=== PATIENT | female | born 1965 | race Caucasian/White ===

== ENCOUNTER 2025-06-13 08:56 | Outpatient (AMB) | payer BC, SELFPAY ==
--- NOTE | 2025-06-13 09:00 | HO.SPINEOV ---
Vital Signs 06/13/25 09:03 Height 5 ft 10 in Weight 225 lb BMI 32.3 Intake Visit Reasons: cervicalgia Intake Note: Ms. Woodruff is here today c/o neck pain and numbness on the left side. 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 HPI: This 59-year-old female fell 6 ft at work in 2011. This is not a worker's comp case. She suffered a concussion and has been complaining of left-sided neck pain. She has tried all forms of conservative therapy, including physical therapy, acupuncture, local creams and a epidural steroid injection. No improvement occurred. The most beneficial was acupuncture which caused her 100 dollars per treatment and is not reimbursed. In November of this year the pain aggravated and now involves tingling in mostly the 2nd and 3rd finger on the left. The pain stays on the left side of her neck and goes to her shoulder blade but not into the arm. The pain wakes her up at night. 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 PMH: Diabetes with an A1c of 5.2 after starting Mounjaro. , appendectomy and hysterectomy Medications: Mounjaro, gabapentin, ibuprofen/Tylenol, muscle relaxant p.r.n. Allergies: Rapliva Social history: Employed, nonsmoker. Physical Exam: Pleasant female. Spurling produces pain down the left side of her neck and increases the tingling in the 2nd and 3rd fingers. Motor and sensory exam are intact. Reflexes are symmetrically intact. No pathological reflexes. Gait is undisturbed. Tinel signs are negative Radiological Studies: MRI done at [facility] on 05/02/2025 shows degenerative disc disease C5-6 and C6-7 with severe bilateral C6 foraminal stenosis and moderate left C7 foraminal stenosis Impression/Plan: This patient is suffering from left-sided neck pain with a component of cervical radiculopathy most likely related to the C5-6 and C6-7 degenerative disc disease. She has tried all forms of conservative treatments and I have no input on any other form of nonsurgical treatments. She could consider an anterior diskectomy and fusion C5-6 and C6-7 depending on the severity of her symptoms. We briefly discussed the surgical approach with possible complications and expected postoperative course. I will leave it up to the patient if she wants to proceed with this. For now, I think she will opt to continue her current regiment. Thank you for allowing me to participate in your patients care. total time spent was 50 minutes in counseling ,coordination of plan, personal review of imaging, surgical decision making and subsequent plan Ancelmo Rhodes MD, PhD Spine Fellowship Trained Neurosurgeon Director, [facility] Coding Level of Care Code New Pt Level 4 (52042) Diagnoses Cervical radiculopathy due to degenerative joint disease of spine M47.22
[2025-06-13 09:03] VITALS: BMI 32.3
--- OUTSIDE RECORDS SUMMARY | 2025-06-13 09:50 | XMS_ITS | Clinical Summary ---
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 0 04/23/2021 Active amoxicillin (AMOXIL) 500 MG capsule TAKE 1 CAPSULE BY MOUTH EVERY 8 HOURS UNTIL GONE 0 01/20/2022 Active clotrimazole-betamet hasone (LOTRISONE) cream APPLY THIN LAYER TOPICALLY TO THE AFFECTED AREA TWICE DAILY FOR 2 WEEKS 0 01/26/2022 Active ibuprofen 800 MG tablet Take 800 mg by mouth every 8 (eight) hours as needed. with food 0 01/20/2022 Active miconazole (MICATIN) 2 % cream APPLY TOPICALLY TO THE AFFECTED AREA TWICE DAILY FOR 2 WEEKS 0 01/12/2022 Active predniSONE (DELTASONE) tablet 10 mg 5 tablets by mouth daily for 2 days then decrease by 1 pill every 2 days until finished 30 tablet 0 02/08/2022 Active Active Problems No known active problems Family History Medical History Relation Name Comments Arthritis Brother Clotting disorder Brother Diabetes Brother Heart disease Brother Hyperlipidemia Brother Hypertension Brother Arthritis Father Clotting disorder Father Arthritis Mother Clotting disorder Mother Diabetes Mother Heart disease Mother Hyperlipidemia Mother Hypertension Mother Relation Name Status Comments Brother Father Mother Social History Tobacco Use Types Packs/Day Years Used Date Smoking Tobacco: Never Smokeless Tobacco: Never Alcohol Use Standard Drinks/Week Comments Not Currently 0 (1 standard drink = 0.6 oz pur e alcohol) Sex and Gender Information Value Date Recorded Sex Assigned at Not on file Gender Identity Not on file Sexual Orientation Not on file Job Start Date Occupation Industry Not on file Not on file Not on file Last Filed Vital Signs Vital Sign Reading Time Taken Comments Blood Pressure - - Pulse - - Temperature - - Respiratory Rate - - Oxygen Saturation - - Inhaled Oxygen Concentration - - Weight 127 kg (280 lb) 02/08/2022 11:32 AM EDT Height 177.8 cm (5' 10 ) 02/08/2022 11:32 AM EDT Body Mass Index 40.18 02/08/2022 11:32 AM EDT Plan of Treatment Health Maintenance Due Date Last Done Comments Hepatitis B Vaccines (1 of 3 - 3-dose series) 1965 Hepatitis C Screening 1965 Depression Screening 1979 BMI Counseling 12/15/1985 Preventative Health Evaluation 12/15/1985 Cervical Cancer Screening (Pap Smear) 12/15/1988 Colon Cancer Screening (Colonoscopy) 12/15/2012 Breast Cancer Screening (Mammogram) 12/15/2017 Shingrix-Zoster Vaccine (1 o f 2) 12/15/2017 DTap / Tdap / Td (2 - Td or Tdap) 04/30/2020 04/30/2010 COVID-19 Vaccine (3 - 2023-2 5 season) 2024 02/18/2021, 01/22/2021 Influenza Vaccine (#1) 2025 0, 07/19/2016 Pneumococcal Vaccine Aged Out No long er eligible based on patient's age to complete this topic RSV Ped < 20 months Aged Out No longe r eligible based on patient's age to complete this topic
--- OUTSIDE RECORDS SUMMARY | 2025-06-13 09:50 | XMS_ITS | Clinical Summary ---
Author Organization [facility] [address] [facility] Address [address], [place] Phone Care Team Providers Care Mechanical Inspector Name Role Phone Tiffanie Venegas MD Primary Care Prov ider Allergies Active Allergy Reactions Criticality Noted Date Comments Other Nausea And Vomiting 11/15/2006 [id number] Acid Repliva 05/0511/28/2024 Medications tirzepatide (Mounjaro) 5 mg/0.5 mL injection INJECT ONCE WEEKLY DIRECTED 4 Active ipratropium-alb uteroL (DUONEB) 0.5-2.5 mg/3 mL nebulizer solution Inhale 3 mL into the lungs 4 times daily. 4 Active albuterol HFA (PROAIR HFA ; PROVENTIL HFA ; VENTOLIN HFA) 90 mcg/actuation inhaler Inhale 2 Puffs into the lungs 4 times daily as needed for Cough, Wheezing or Shortness of Breath. 3 Active turmeric root extract 500 mg capsule Take by mouth. Activ e magnesium oxide (MAG-OX) 400 mg magnesium tablet Take by mouth. 8 Active ASCORBIC ACID, VITAMIN C, ORAL Take by mouth. 1 daily Active omega-3 acid ethyl esters (LOVAZA) 1 gram capsule Take by mouth 3 times daily. Active cyanocobalamin, vitamin B-12, (VITAMIN B-12 ORAL) 1 every other day Active valACYclovir (VALTREX) 500 mg tablet TAKE 1 TABLET BY MOUTH TWICE DAILY FOR 3 DAYS NEEDED FOR OUTBREAK 6 tablet 2 5 Active clotrimazole-be tamethasone (LOTRISONE) 1-0.05 % cream Apply a thin film to affected area twice daily for 2 weeks 30 g 2 5 Active Active Problems Problem Noted Date Diagnosed Date Class 1 obesity due to exces s calories with serious comorbidity and body mass index (BMI) of 33.0 to 33.9 in adult 08/15/2024 Genital herpes 11/13/2018 Chronic back pain 01/14/2014 Overview (08/15/2024): 01/2765-Nzdzh-kxphl right lateral protrusion of the disc. Intermediate signal intensity structure in the right L3 neural foramen which could represent migrated disc fragment. Possibility of the neoplastic process is not excluded. Additional assessment with intravenous contrast is recommended. Early degenerative changes in the L 2-3 disc. Tear of the annulus fibrosis and small central herniation of the L4-5 disc. Underdeveloped L5-S1 disc. Dizziness 12/17/2012 Overview (08/15/2024): After her fall at work.10/28-incomplete EMG as patient did not finish tablet testing. However the patient's up beating nystagmus is consistent with a central pathology. Etiologies may include infarctions tumors degenerations of the cerebella and midbrain as well as MS Patient was seen by Dr. garcia neurologist. His note states that patient has not suffered any infarctions tumors degenerations or cerebellar issues is speculated in the report he recommended repeat study with completion of all the test. He however states his opinion that the patient can go back to work does not change Neck pain 02/08/2012 Overview (08/15/2024): 05/2012 patient was seen by Dr. Delgado from daily to the medical service regarding the right shoulder calcified tendinitis and neck sprain. He noted at that time that the right shoulder in [place] and it isn't not resolved he recommended physical recommendations for this patient 01/25-xray Spondylosis with bilateral neural foraminal narrowing at C5-6. Diabetes mellitus type 2, un complicated ([facility] V24, [facility] V28) 05/07/2010 Assessment & Plan (11/28/2024 9:17 AM EST): Good control of diabetes on Mounjaro. A1C: 5.4, follows regularly at [facility]. Patient will continue with yearly Podiatric and Ophthomologic evaluations. Patient will follow up in 6 months Stress incontinence 05/01/2010 Dry eyes 04/30/2010 Overview (08/15/2024): cpx 04/30/[address]Pamela Ramos, [facility] - given drops Hirsutism 11/04/2007 Overview (08/15/2024): Idiopathic ; Seen [facility] Alpha 0-thalassemia ([facility] V24) 10/31/2007 Overview (08/15/2024): cpx 04/30/10 Takes folic acid - per article she read Asthma 10/19/2006 Overview (08/15/2024): 07/24 stress echo nad cpx 04/30/10-using flovent once per day ; Pt advised to increase to bid Assessment & Plan (11/28/2024 9:17 AM EST): Well controlled, ACT is 20, no recent exacerbations or visits to ER. Continue albuterol PRN. Iron deficiency anemia 10/19/2006 Overview (08/15/2024): Dr Garvey-seen by him cpx 04/30/10 :Fe done today very low ; start taking slow Fe bid Migraine with aura 10/19/2006 Overview (08/15/2024): Neurology (10/23/17): seen for headaches. Patient is followed with [facility] for myofascial and cervicogenic headaches. Advised to continue hydration. Recommended trial of daily magnesium 400 mg preventatively for these headaches. Patient not interested in nortriptyline. Encounters Date Type Department Care Team Description 05/02/2025 7:31 AM EDT - 05/02/2025 11:59 PM EDT Hospital Encounter Radiology Department - [address] [id number] Cervicalgia; Radiculopathy, cervical region Discharge Disposition: Home or Self Care from Last 3 Months Immunizations Name Administration Dates Next Due Influenza Quadravalent, MDCK , 0.5ml, preservative free (Flucelvax) 6mo and older 08/07/2023,08/10/2022 Influenza trivalent, 0.5mL, preservative free (Fluarix; FluLaval; Fluzone) ages 6mo and older (Afluria) 3 years and older 07/25/2024,11/03/2021,07/15/2020,2017,06/29/2017,07/19/2016,07/07/2015 Influenza, Unspecified 08/18/2022 Automated Insights SARS-CoV-2 COVID-19, mRNA, LNP-S, preservative free 02/18/2021 Td Tetanus diptheria (Tdvax) 7yo and older 12/22/2020 Tdap Tetanus diptheria acell ular pertussis (Boostrix; Adacel) 7yo and older 04/30/2010 Surgical History Surgery Date Site/Laterality Comments SECTION PROCEDURE: HISTORICAL DELIVERY APPENDECTOMY PROCEDURE: HISTORICAL APPENDECTOMY OTHER SURGICAL HISTORY 2007 PROCEDURE: HISTORICAL LAPAROSCOPIC HYSTERECTOMY WITH OR WITHOUT BSO; COMMENT: ovaries remain Medical History Medical History Date Comments Anemia, unspecified DX:Anemia, u nspecified Iron deficiency anemia 10/19/2006 DX:Iron d eficiency anemia; COMMENT: Dr Garvey-seen by him cpx 04/30/10 :Fe done today very low ; start taking slow Fe bid Diabetes mellitus type 2, uncomplicated (CMS/HCC V24, [facility] V28) 05/07/2010 DX:Diabetes mellitus type 2, uncomplicated ([facility]) Obesity 10/19/2006 DX:Obesity HSV infection 11/13/2018 DX:HSV infection Family History Medical History Relation Name Comments Hyperlipidemia Brother Hypertension Brother Coronary artery disease Father Heart attack Father Depression Maternal Grandmother Diabetes Maternal Grandmother Anemia Mother Depression Mother Hypertension Mother massive stroke Breast cancer Neg Hx Colon cancer Neg Hx Ovarian cancer Neg Hx Relation Name Status Comments Brother Alive 2, Father PE Maternal Grandmother Mother Alive lupus on dialys is,valve replacements Social History Tobacco Use Types Packs/Day Years Used Date Smoking Tobacco: Never Smokeless Tobacco: Never Tobacco Cessation:Counseling Given: Not Answered Alcohol Use Standard Drinks/Week Comments Yes 0 (1 standard drink = 0.6 oz pur e alcohol) Housing Instability Answer Date Recorde d Are you worried that in the next 2 months you may not have stable housing? No 03/11/2025 Food Access & Nutrition Answer Date Rec orded Do you have access to a vari ety of food including fruits and vegetables? Yes 03/11/2025 Access to Healthcare Answer Date Record ed Within the last 3 months, ho w many times did you visit the emergency department for your medical care? 0 03/11/2025 Health Literacy Answer Date Recorded How often do you need to hav e someone help you when you read instructions, pamphlets, or other written material from your doctor or pharmacy? Never 03/11/2025 Caregiver: How often do you need to have someone help you when you read instructions, pamphlets, or other written material from your doctor or pharmacy? Not on file 03/11/2025 Financial Risk Answer Date Recorded How hard is it for you to pa y for the very basics like food, housing, medical care, and air conditioning / heating? Not very hard 03/11/2025 Transportation Answer Date Recorded Has the lack of transportati on kept you from meetings, work, or from getting things needed for daily living? No Has the lack of transportati on kept you from medical appointments or from getting medications? No 03/11/2025 Social Isolation Answer Date Recorded How often do you feel lonely or isolated from those around you? Sometimes 03/11/2025 Food Risk Answer Date Recorded Within the past 12 months we worried whether our food would run out before we got money to buy more. Never true 03/11/2025 Within the past 12 months th e food we bought just didn't last and we didn't have money to get more. Never true 03/11/2025 Dependent Care Answer Date Recorded Do you need help finding or paying for care for your loved ones. For example, early childhood assistant or elderly care for an older adult? Patient declined 03/11/2025 Education Answer Date Recorded Do you think completing more education or training, like finishing a GED, going to college, or learning a trade, would be helpful for you? N/A 03/11/2025 Employment and Income Answer Date Recor ded During the last four weeks, have you been actively looking for work? No 03/11/2025 Living Situation Answer Date Recorded What is your living situation? 0 03/11/2025 Comments No Sex and Gender Information Value Date Recorded Sex Assigned at Female 09/12/2024 8:42 AM EST Legal Sex Female 10:32 AM EST Gender Identity Female 09/12/2024 8:42 AM EST Sexual Orientation Straight 09/12/2024 8: 42 AM EST Obstetrics History Para Term AB IAB SAB Ectopic Multiple Livin g Live Births 2 2 2 2 Date Outcome GA Total Labor Labor/2nd/3rd Weight Sex Type Anes PTL Jasmine A1 A5 Name Clin Term Term Last Filed Vital Signs Vital Sign Reading Time Taken Comments Blood Pressure 103/63 11/28/2024 8:45 AM EST Pulse 74 11/28/2024 8:45 AM EST Temperature 36.2 C (97.2 F) 11/28/2024 8:45 AM EST Respiratory Rate 16 11/28/2024 8:45 AM EST Oxygen Saturation - - Inhaled Oxygen Concentration - - Weight 105 kg (232 lb) 11/28/2024 8:45 AM EST Height 177.8 cm (5' 10 ) 11/28/2024 8:45 AM EST Body Mass Index 33.29 11/28/2024 8:45 AM EST Plan of Treatment Upcoming Encounters Date Type Department Care Team (Late st Contact Info) Description 08/14/2025 7:30 AM EDT Office Visit Adult Medicine [facility] [address] [place] [address] Mandi Us PA [address], [place] Health Maintenance Due Date Last Done Comments Hepatitis B Vaccines (1 of 3 - 19+ 3-dose series) 12/15/1986 Pneumococcal Vaccine: 50+ Years (1 of 2 - PCV) 12/15/1986 Zoster Vaccines (1 of 2) 12/15/2017 Colorectal Cancer Screening: FIT-DNA (Cologuard) 09/22/2022 COVID-19 Vaccine ( season) 2024 10/24/2021, 02/18/2021, 01/22/2021 Diabetes: Annual Retina Eye Exam 11/08/2024 11/08/2023 Diabetes: Blood Sugar Control Test (HGBA1C) 02/10/2025 08/12/2024, 08/12/2024 Diabetes: Annual Foot Exam 03/27/2025 03/27/2024 Influenza Vaccine (#1) 2025 , 08/07/2023, 08/18/2022, Additional history exists Diabetes: Annual Urine Albumin-Creatinine Ratio (uACR) 02/24/2026 02/24/2025, 01/20/2024 Diabetes: Annual GFR (Glomerular Filtration Rate) 02/24/2026 02/24/2025, 08/12/2024, 08/12/2024 Social Influencers of Health Screening 03/11/2026 03/11/2025 Breast Cancer Screening 09/11/2026 09/11/20, 09/08/2023, 12/24/2019, Additional history exists Cholesterol Screening (Lipid Panel) 02/24/2030 02/24/2025, 08/12/2024, 08/12/2024 DTaP,Tdap,and Td Vaccines (3 - Td or Tdap) 12/22/2030 12/22/2020, 04/30/2010 HIV Screening Completed 01/03/2021 Hepatitis C Screening Completed 01/03/2021 Depression Screening Completed 03/11/2025 HIB Vaccines Aged Out No longer eligi ble based on patient's age to complete this topic HPV Vaccines Aged Out No longer eligi ble based on patient's age to complete this topic Hepatitis A Vaccines Aged Out No long er eligible based on patient's age to complete this topic IPV Vaccines Aged Out No longer eligi ble based on patient's age to complete this topic MMR Vaccines Aged Out No longer eligi ble based on patient's age to complete this topic Meningococcal ACWY Vaccine Aged Out N o longer eligible based on patient's age to complete this topic Meningococcal B Vaccine Aged Out No l onger eligible based on patient's age to complete this topic RSV Immunization Patients Under 20 months Aged Out No longer eligible based on patient's age to complete this topic Varicella Vaccines Aged Out No longer eligible based on patient's age to complete this topic Procedures Procedure Name Priority Date/Time Associated Diagnosis Comments MR CERVICAL SPINE WO CONTRAST Routine 05/02/2025 8:24 AM EDT Cervicalgia Radiculopathy, cervical region MICROALBUMIN CREATININE URINE RATIO Routine 02/24/2025 1:41 PM EDT Diabetes mellitus (CMS/HCC V24, CMS/HCC V28) COMPREHENSIVE METABOLIC PANEL Routine 02/24/2025 1:41 PM EDT Diabetes mellitus (CMS/HCC V24, CMS/HCC V28) LIPID PANEL WITH REFLEX TO DIRECT LDL Routine 02/24/2025 1:41 PM EDT Diabetes mellitus ([facility]/HCC V24, CMS/HCC V28) MAMMO DIGITAL SCREENING W RICKEY BILAT Routine 09/11/2024 8:02 AM EST Encounter for screening mammogram for breast cancer HEMOGLOBIN A1C Routine 08/12/2024 DIABETES FOOT EXAM Routine 03/27/2024 DIABETES EYE EXAM Routine 11/08/2023 HEPATITIS C SCREENING Routine 01/03/2021 HIV SCREENING Routine 01/03/2021 from Last 3 Months or Most Recently Relevant to Health Maintenance Results * MR Cervical Spine wo Contrast (05/02/2025 8:24 AM EDT) Anatomical Region Laterality Modality C-spine, Spine Magnetic Resonan ce 05/02/2025 3:56 PM EDT Impressions 05/02/2025 4:12 PM EDT Multilevel bony and discogenic degenerative changes as described, not significantly changed. -------- FINAL REPORT -------- Dictated By: Joan Tubbs Dictated Date: 05/02/2025 15:56 ET Assigned Physician: Joan Tubbs Reviewed and Electronically Signed By: Joan Tubbs Signed Date: 05/02/2025 16:12 ET Workstation ID: [id number] Transcribed By: Self Edit Transcribed Date: 05/02/2025 15:56 ET Narrative 05/02/2025 4:12 PM EDT MR CERVICAL SPINE WO CONTRAST MRI CERVICAL SPINE WITHOUT CONTRAST HISTORY: Left-sided neck pain with arm paresthesias. Comparison: MRI cervical spine 02/20/2023. Technique: MRI of the cervical spine was performed without contrast. FINDINGS: The cerebellar tonsils are normal in position. The spinal cord is normal in caliber and signal. There is normal alignment of the cervical spine. Vertebral body heights and bone marrow signal are preserved. At C2-C3, there is no appreciable spinal canal or neuroforaminal stenosis. At C3-C4, there is a tiny central disc protrusion, unchanged. There is disc/osteophyte complex, more prominent on the left, and this is not significantly changed. No neural foramen or central spinal canal stenosis. At C4-C5, there is disc bulging with disc/osteophyte complex which of effaces the anterior subarachnoid space. There is bilateral uncovertebral hypertrophy. No significant change. At C5-C6, there is disc space narrowing. There is disc bulging with disc/osteophyte complex and uncovertebral hypertrophy, resulting in moderate is severe bilateral neural foraminal narrowing, bilateral recess narrowing, and mild central spinal canal stenosis. No significant change. At C6-C7, there is disc space narrowing . There is disc bulging with disc/osteophyte complex and uncovertebral hypertrophy which effaces the anterior subarachnoid space, causing mild central spinal canal stenosis and moderate to severe bilateral neuroforaminal narrowing. No significant change. At C7-T1, there is left paracentral disc protrusion which effaces the anterior left side of the dural tube. No significant change.. Procedure Note Joan Tubbs MD - 05/02/2025 MR CERVICAL SPINE WO CONTRAST MRI CERVICAL SPINE WITHOUT CONTRAST HISTORY: Left-sided neck pain with arm paresthesias. Comparison: MRI cervical spine 02/20/2023. Technique: MRI of the cervical spine was performed without contrast. FINDINGS: The cerebellar tonsils are normal in position. The spinal cordis normal in caliber and signal. There is normal alignment of the cervicalspine. Vertebral body heights and bone marrow signal are preserved. At C2-C3, there is no appreciable spinal canal or neuroforaminalstenosis. At C3-C4, there is a tiny central disc protrusion, unchanged. There isdisc/osteophyte complex, more prominent on the left, and this is notsignificantly changed. No neural foramen or central spinal canalstenosis. At C4-C5, there is disc bulging with disc/osteophyte complex which ofeffaces the anterior subarachnoid space. There is bilateral uncovertebralhypertrophy. No significant change. At C5-C6, there is disc space narrowing. There is disc bulging withdisc/osteophyte complex and uncovertebral hypertrophy, resulting inmoderate is severe bilateral neural foraminal narrowing, bilateral recessnarrowing, and mild central spinal canal stenosis. No significantchange. At C6-C7, there is disc space narrowing . There is disc bulging withdisc/osteophyte complex and uncovertebral hypertrophy which effaces theanterior subarachnoid space, causing mild central spinal canal stenosisand moderate to severe bilateral neuroforaminal narrowing. No significantchange. At C7-T1, there is left paracentral disc protrusion which effaces theanterior left side of the dural tube. No significant change.. IMPRESSION: Multilevel bony and discogenic degenerative changes as described, notsignificantly changed. -------- FINAL REPORT -------- Dictated By: Joan Tubbs Dictated Date: 05/02/2025 15:56 ET Assigned Physician: Joan Tubbs Reviewed and Electronically Signed By: Joan Tubbs Signed Date: 05/02/2025 16:12 ET Workstation ID: [id number] Transcribed By: Self Edit Transcribed Date: 05/02/2025 15:56 ET us Michael RECIO IMG MRI PROCEDURES Final Resul t * Lipid panel with reflex to direct LDL (02/24/2025 1:41 PM EDT) Cholesterol 161 0 - 200 mg/dL LAB CHEMISTRY METHOD 02/24/2025 6:48 PM EDT [facility] Triglycerides 61 0 - 150 mg/dL LAB CHEMISTRY METHOD 02/24/2025 6:48 PM EDT [facility] HDL 58 >=40 mg/dL LAB CHEMISTRY METHOD 02/24/2025 6:48 PM EDT [facility] LDL Calculated 91 0 - 100 mg/dL LAB CHEMISTRY METHOD 02/24/2025 6:48 PM EDT [facility] VLDL Cholesterol Presley 12.2 mg/dL LAB CHEMISTRY METHOD 02/24/2025 6:48 PM EDT [facility] Non HDL Chol. (LDL+VLDL) 103 <145 mg/dL LAB CHEMISTRY METHOD 02/24/2025 6:48 PM EDT [facility] Chol/HDL Ratio 2.8 0.0 - 4.4 LAB CHEMISTRY METHOD 02/24/2025 6:48 PM EDT [facility] Blood Venous blood specimen / Unknown Venipuncture / Unknown 02/24/2025 1:41 PM EDT 02/24/2025 1:41 PM EDT us Martínez Hong MD LAB BLOOD ORDERABLES Final Result [facility] [address] [place] [address], * Microalbumin creatinine urine ratio (02/24/2025 1:41 PM EDT) Creatinine, Urine 175.0 mg/dL LAB CHEMISTRY METHOD 02/24/2025 7:11 PM EDT [facility] Microalb, Ur 20.1 0.0 - 29.0 mg/L LAB CHEMISTRY METHOD 02/24/2025 7:11 PM EDT [facility] Microalb/Creat Ratio 11 <30 mg/g creat LAB CHEMISTRY METHOD 02/24/2025 7:11 PM [facility] Urine Urine specimen obtained by clean catch procedure / Unknown Non-blood Collection / Unknown 02/24/2025 1:41 PM EDT 02/24/2025 1:41 PM EDT Martínez Hong MD LAB URINE ORDERABLES Final Result [facility] [address] [place] [address], [place] [phone] * Comprehensive metabolic panel (02/24/2025 1:41 PM EDT) Sodium 143 133 - 145 mmol/L LAB CHEMISTRY METHOD 02/24/2025 6:48 PM [facility] Potassium 4.2 3.5 - 5.5 mmol/L LAB CHEMISTRY METHOD 02/24/2025 6:48 PM [facility] Chloride 110 96 - 110 mmol/L LAB CHEMISTRY METHOD 02/24/2025 6:48 PM [facility] CO2 28 21 - 32 mmol/L LAB CHEMISTRY METHOD 02/24/2025 6:48 PM [facility] Anion Gap 5 3 - 11 LAB CHEMISTRY METHOD 02/24/2025 6:48 PM [facility] Glucose 85 70 - 100 mg/dL LAB CHEMISTRY METHOD 02/24/2025 6:48 PM [facility] BUN 13 5 - 25 mg/dL LAB CHEMISTRY METHOD 02/24/2025 6:48 PM [facility] Creatinine 0.54 0.50 - 1.10 mg/dL LAB CHEMISTRY METHOD 02/24/2025 6:48 PM [facility] eGFR 108 >=60 mL/min/1. 73m2 LAB CHEMISTRY METHOD 02/24/2025 6:48 PM [facility] Comment:Calculation based on the Chronic Kidney Disease Epidemiology Collaboration (CKD-EPI) equation refit without adjustment for race. BUN/Creatinine Ratio 24.1 LAB CHEMISTRY METHOD 02/24/2025 6:48 PM EDT [facility] Calcium 8.7 8.5 - 10.5 mg/dL LAB CHEMISTRY METHOD 02/24/2025 6:48 PM EDT [facility] AST (SGOT) 20 10 - 42 unit/L LAB CHEMISTRY METHOD 02/24/2025 6:48 PM EDT [facility] ALT (SGPT) 21 10 - 60 unit/L LAB CHEMISTRY METHOD 02/24/2025 6:48 PM EDT [facility] Alkaline Phosphatase 100 42 - 121 unit/L LAB CHEMISTRY METHOD 02/24/2025 6:48 PM EDT [facility] Total Protein 6.5 6.0 - 8.0 g/dL LAB CHEMISTRY METHOD 02/24/2025 6:48 PM EDT [facility] Albumin 3.6 3.2 - 5.0 g/dL LAB CHEMISTRY METHOD 02/24/2025 6:48 PM EDT [facility] Total Bilirubin 0.4 0.0 - 1.4 mg/dL LAB CHEMISTRY METHOD 02/24/2025 6:48 PM EDT [facility] Blood Venous blood specimen / Unknown Venipuncture / Unknown 02/24/2025 1:41 PM EDT 02/24/2025 1:41 PM EDT us Martínez Hong MD LAB BLOOD ORDERABLES Final Result [facility] [address] [place] [address], * MG Mammo Digital Screening w Rickey bilat (09/11/2024 8:02 AM EST) Anatomical Region Laterality Modality Breast Bilateral Mammography 09/11/2024 5:09 PM EST Impressions 09/11/2024 5:12 PM EST No mammographic evidence for malignancy. BI-RADS CATEGORY: 1 - NEGATIVE RECOMMENDATION: Screening bilateral mammogram is recommended in 1 year. Mammo Location: [facility], [address] [place] [address], [id number], . -------- FINAL REPORT -------- Dictated By: Karrie Clark Dictated Date: 09/11/2024 17:09 ET Assigned Physician: Karrie Clark Reviewed and Electronically Signed By: Karrie Clark Signed Date: 09/11/2024 17:12 ET Workstation ID: [id number] Transcribed By: Self Edit Transcribed Date: 09/11/2024 17:09 ET Narrative 09/11/2024 5:12 PM EST Bilateral screening mammogram. CLINICAL: 58 years old, Female, routine annual exam. COMPARISON: Prior mammograms, latest from 09/08/2023. TECHNIQUE: Bilateral MLO and CC views were obtained digitally with 3-D mammogram (digital breast tomosynthesis). Computer-aided detection was utilized in evaluation of this exam (CAD). FINDINGS: There is no evidence of suspicious mass or architectural distortion. No worrisome calcifications are evident. There has been no significant change from prior exam(s). BREAST DENSITY: B - There are scattered areas of fibroglandular density. Procedure Note Karrie Clark MD - 09/11/2024 Bilateral screening mammogram. CLINICAL: 58 years old, Female, routine annual exam. COMPARISON: Prior mammograms, latest from 09/08/2023. TECHNIQUE: Bilateral MLO and CC views were obtained digitally with 3-Dmammogram (digital breast tomosynthesis). Computer-aided detection wasutilized in evaluation of this exam (CAD). FINDINGS: There is no evidence of suspicious mass or architectural distortion. Noworrisome calcifications are evident. There has been no significantchange from prior exam(s). BREAST DENSITY: B - There are scattered areas of fibroglandular density. IMPRESSION: No mammographic evidence for malignancy. BI-RADS CATEGORY: 1 - NEGATIVE RECOMMENDATION: Screening bilateral mammogram is recommended in 1 year. Mammo Location: [facility], [address] [place] [address], [id number], . -------- FINAL REPORT -------- Dictated By: Karrie Clark Dictated Date: 09/11/2024 17:09 ET Assigned Physician: Karrie Clark Reviewed and Electronically Signed By: Karrie Clark Signed Date: 09/11/2024 17:12 ET Workstation ID: [id number] Transcribed By: Self Edit Transcribed Date: 09/11/2024 17:09 ET Result [facility] Tiffanie Venegas MD IMG BI PROCEDURES Final Result * Hemoglobin A1c (08/12/2024) [facility] [place] Hemoglobin A1C 5.4 <=6.5 % Blood Venous blood specimen / Unknown Result [facility] Provider LAB BLOOD ORDERABLES Filomena l Result * Diabetes Foot Exam (03/27/2024) [facility] Diabetes: Annual Foot Exam abstracted Result [facility] Provider HEALTH MAINTENANCE Final Result * Diabetes Eye Exam (11/08/2023) [facility] [place] Diabetes: Annual Retina Eye Exam abstracted Result [facility] Provider HEALTH MAINTENANCE Final Result * HIV Screening (01/03/2021) [facility] [place] HIV Screening abstracted Result [facility] Provider HEALTH MAINTENANCE Final Result * Hepatitis C Screening (01/03/2021) [facility] Hepatitis C Screening abstracted Result [facility] Provider HEALTH MAINTENANCE Final Result from Last 3 Months or Most Recently Relevant to Health Maintenance Insurance [employer] - [employer] Care Teams Mechanical Inspector Relationship Specialty Start Date End Date Tiffanie Venegas MD [address] [place] [phone] PCP - General 09/06/22
--- OUTSIDE RECORDS SUMMARY | 2025-06-13 09:50 | XMS_ITS | Continuity of Care Document ---
Author Organization [facility] [address] [place] [address] Phone [phone] Care Team Providers Care Retail Account Representative Name Role Phone Tiffanie Conner MD Care Team Information Re ceiver [phone] Problems Active Problems Provider Date Asthma Martínez Hong M.D. Onset: 0 11/25/2022 Type 2 diabetes mellitus Martínez Hong M.D. Onset: 11/25/2022 Hirsutism Martínez oHng M.D. Onset: 0 11/25/2022 Obesity Martínez Hong M.D. Onset: 0 11/25/2022 Social History Type Date Description Comments Sex Female Sex Unknown Tobacco Use Start: Unknown Never Smoked Cigarettes ETOH Use Rarely consumes alcohol Allergies and adverse reactions Description No Known Drug Allergies Medications Active Medications SIG Qnty Indications Ordering Provider Date Mounjaro7.5mg/0.5ML Solution Auto-Inject 1 injection every week 6ml E11.9 Martínez Hong M.D. 02/13/2025 [id number] Tablets Take 1 Tablet By Mouth Every 8 Hours With Food as Needed Unknown Valacyclovir [id number] Tablets Take 1 Tablet By Mouth Twice Daily For 3 Days as Needed For Outbreak Unknown Vital Signs Date Vital Result Comment 02/13/2025 9:19am BP Systolic 110 mmHg BP Diastolic 70 mmHg Heart Rate 72 /min Height 70 inches 5'10 Weight 230.31 lb BMI (Body Mass Index) 33.0 kg/m2 Results Test Acquired Date Facility Test Result H/L Range Note Glucose Fingerstick 02/13/2025 Inhouse Glucose Fingerstick 100 Hemoglobin A1c 02/13/2025 Inhouse Hemoglobin A1c 5.2% Glucose Fingerstick 08/15/2024 Inhouse Glucose Fingerstick 97 Hemoglobin A1c 04/12/2024 Inhouse Hemoglobin A1c 5.4% Glucose Fingerstick 04/12/2024 Inhouse Glucose Fingerstick 81 Glucose Fingerstick 01/01/2024 Inhouse Glucose Fingerstick 145 Glucose Fingerstick 12/12/2023 Inhouse Glucose Fingerstick 203 Hemoglobin A1c 12/12/2023 Inhouse Hemoglobin A1c 8.2% Urinalysis Complete 12/12/2023 [facility] Reference Lab Appear/Color LIGHT YELLOW 1 SP. [place] 1.015 (1.002- 1.030) Urine PH 6.0 (5.0-8. 0) Urine Albumin NEGATIVE (Neg) Urine Glucose NEGATIVE (Neg) Urine Ketones NEGATIVE (Neg) Urine Bilirubin NEGATIVE (Neg) Urine Hemoglobin NEGATIVE (Neg) Urine Nitrite NEGATIVE (Neg) Urine Leukocyte 3+ Abnormal (Neg) Urobilinogen NORMAL mg/dL (Norm) Urine WBCs 73 /HPF High (0-5) Urine RBCs 1 /HPF (0-3) Bacteria SLIGHT HPF Abnormal (Neg) Mucus SLIGHT /LPF WBC Clumps SLIGHT /HPF Squamous Epith 1 /HPF (0-8) Hemoglobin A1c 07/03/2023 Inhouse Hemoglobin A1c 6.6% Glucose Fingerstick 07/03/2023 Inhouse Glucose Fingerstick 157 Hemoglobin A1c 03/01/2023 Inhouse Hemoglobin A1c 6.9% Glucose Fingerstick 03/01/2023 Inhouse Glucose Fingerstick 156 Urinalysis Complete 11/25/2022 [facility] Reference Lab Appear/Color COLORLESS 2 SP. [place] 1.007 (1.002- 1.030) Urine PH 6.5 (5.0-8. 0) Urine Albumin NEGATIVE (Neg) Urine Glucose NEGATIVE (Neg) Urine Ketones NEGATIVE (Neg) Urine Bilirubin NEGATIVE (Neg) Urine Hemoglobin NEGATIVE (Neg) Urine Nitrite NEGATIVE (Neg) Urine Leukocyte NEGATIVE (Neg) Urobilinogen NORMAL mg/dL (Norm) Urine WBCs 2 /HPF (0-5) Urine RBCs <1 /HPF (0-3) Mucus SLIGHT /LPF Squamous Epith 2 /HPF (0-8) Urinary Microalbumin 11/25/2022 [facility] Reference Lab Micro-Albumin <12.0 mg/L (<20) 3 Malb/Creat Ratio Unable to calcul <SEE NOTE> MG/GM (0-20) 4 Urine Creat For Micro Albumin 24.3 mg/dL Hemoglobin A1c 11/25/2022 Inhouse Hemoglobin A1c 6.9% Glucose Fingerstick 11/25/2022 Inhouse Glucose Fingerstick 157 1 CLEAR 2 CLEAR 3 The urine microalbum in test is designed to monitor renal function. When screening for Bence Richard proteinuria, urine electrophoresis is recommended. 4 Unable to calculate Medical Devices Description No Information Available Encounters Type Date Location Provider Dx Diagnosis Office Visit 02/13/2025 9:15a Main Office Martínez Hong M.D. E11.9 Type 2 diabetes mellitus without complications Assessments Date Code Description Provider 02/13/2025 E11.9 Type 2 diabetes mellitus without complications Martínez Hong M.D. Plan of Treatment Future Appointment(s):* 08/18/2025 8:45 am - Martínez Hong M.D. at Main Office 02/13/2025 - Martínez Hong M.D.* E11.9 Type 2 diabetes mellitus without complications* New Medication:* Mounjaro 7.5 mg/0.5ML * New Labs:* CMP W/Egfr, Ordered: 02/13/25 * Lipid Panel, Ordered: 02/13/25 * Ua Complete, Ordered: 02/13/25 * CBC W/Auto Differential, Ordered: 02/13/25 * TSH W/Reflex To Free T4, Ordered: 02/13/25 * Urine Microalbumin/Creat Ratio, Ordered: 02/13/25 Functional Status Description No Information Available Mental Status Description No Information Available Referrals Description No Information Available
== END 2025-06-13 09:42 | disposition home or self-care (01) ==
LOC: HO.HNS 08:57
PROVIDERS: Referring Provider Physician Assistant; Visit Provider Neurological Surgery
DX: M47.22 Other spondylosis with radiculopathy, cervical region (principal)
CPT/HCPCS: 99204